=== PATIENT | male | born 1955 | race African-American/Black ===

== ENCOUNTER 2017-09-23 21:51 | Emergency (ER) | payer OTHER ==
[~2017-09-23] VITALS: Ht 195.6 cm; Wt 133.8 kg
--- NOTE | ~2017-09-23 | EKG ---
[address] [place] [address] ELECTROCARDIOGRAM REPORT Name: MOOSE HILARIO Room #: [facility] Kellen#: [id number] Admission: 09/23/17 Attend Phys: Discharge: 09/23/17 Date of : 57 Report #: [id number] THIS REPORT FOR: //name// [facility] ED Test Date: 2017-09-23 Test Time: 22:25:30 Pat Name: MOOSE HILARIO Department: Room: Gender: M Character Actress: teodoro : 1955 Requested By: Sukh Martinez Order Number: [id number] MD: Chucky Colorado Measurements Intervals [place] Rate: 50 P: 48 VA: QRS: -4 QRSD: 82 T: 20 QT: 427 QTc: 390 Interpretive Statements Sinus rhythm Second deg AVB, [place] I ([place]) ST elevation, similar to prior EKG likely early repol Compared to ECG 08/21/2015 12:32:41 Electronically Signed On 09-24-2017 10:03:01 CDT by Chucky Colorado [email or web address] <ELECTRONICALLY SIGNED> By: Chucky Colorado MD 09/24/17 1003 Chucky Colorado MD /EPI
[~2017-09-23 21:51] MED LIST: ASPIRIN81 M2 PO; FISH OIL 1,0001 EAC5 PO; LOSARTAN POTASS50 MG PO
[2017-09-23 22:30] LABS: ABSOLUTE NEUTROPHILS 5.3 thou/uL (1.4-8.2); BASOPHILS 0.6 % (0.0-2.0); EOSINOPHILS 1.7 % (0.0-3.0); HEMATOCRIT 43.4 % (42.0-52.0); HEMOGLOBIN 14.5 gm/dL (14.0-18.0); MCHC 33.5 g/dL (28.0-37.0); MCV 89.6 fL (80.0-100.0); MONOCYTES 8.1 % (1.0-8.0); PLATELET COUNT 150 thou/uL (150-400); POLYS 49.6 % (36.0-66.0); RBC 4.85 mil/uL (4.50-6.00); RDW 13.6 % (10.5-14.5); WBC 10.7 thou/uL (4.0-11.0)
[2017-09-23 22:36] LABS: ANION GAP 7 mmol/L (7-16); BUN 16 mg/dL (7-18); CALCIUM 8.9 mg/dL (8.5-10.1); CHLORIDE 103 mmol/L (98-107); CO2 25 mmol/L (21-32); CREATININE 1.3 mg/dL (0.7-1.3); GLUCOSE 99 mg/dL (74-106); SODIUM 135 mmol/L (136-145)
[2017-09-23 22:37] LABS: POTASSIUM 4.2 mmol/L (3.5-5.1)
[2017-09-23 22:45] LABS: ALBUMIN 3.2 g/dL (3.4-5.0); SGOT 42 U/L (15-37); SGPT 29 U/L (30-65); TOTAL BILIRUBIN 0.3 mg/dL (<0.1-1.0); TOTAL PROTEIN 7.5 g/dL (6.4-8.2); TROPONIN-I < 0.04 ng/mL (<0.06)
== END 2017-09-23 23:22 | disposition home or self-care (01) ==
LOC: ER 21:51
PROVIDERS: Emergency Medicine
DX: I10 Essential (primary) hypertension (principal); G47.30 Sleep apnea, unspecified